=== PATIENT | male | born 1990 | race African-American/Black ===

== ENCOUNTER 2017-09-02 11:30 | Inpatient (IN) | payer OTHER ==
[2017-09-02 13:50] VITALS: BMI 23.2
--- NOTE | 2017-09-02 14:59 | HP ---
CIWA Score - CIWA Score Nausea/Vomitin-Mild Nausea/No Vomiting Muscle Tremors: 4-Moderate,w/Arms Extend Anxiety: 4-Mod. Anxious/Guarded Agitation: 4-Moderately Restless Paroxysmal Sweats: 3 Orientation: 0-Oriented Tacttile Disturbances: 0-None Auditory Disturbances: 0-None Visual Disturbances: 0-None Headache: 1-Very Mild CIWA-Ar Total Score: 17 Admission ROS [facility] - HPI Chief Complaint: I am here for detox and help. Allergies/Adverse Reactions: Allergies Allergy/AdvReac Type Severity Reaction Status Date / Time No Known Allergies Allergy Verified 09/02/17 14:15 History of Present Illness: pt is a 27yr old male with a history of alcohol and cannabis dependence seeking detox for treatment. Exam Limitations: No Limitations - Ebola screening Have you traveled outside of the country in the last 21 days: No Have you had contact with anyone from an Ebola affected area: No Have you been sick,other than usual withdrawal symptoms: No Do you have a fever: No - Review of Systems Constitutional: Chills, Diaphoresis, Loss of Appetite, Night Sweats, Changes in sleep, Unintentional Wgt. Loss EENT: reports: Tearing, Nose Congestion Respiratory: reports: No Symptoms reported Cardiac: reports: Syncope GI: reports: Diarrhea, Nausea, Poor Appetite, Poor Fluid Intake, Vomiting, Indigestion : reports: No Symptoms Reported Musculoskeletal: reports: Back Pain Integumentary: reports: Flushing, Sweating, Other (veriscolor on chest/ neck/ back) Neuro: reports: Headache, Tingling, Tremors Endocrine: reports: Excessive Sweating, Flushing, Intolerance to Cold, Intolerance to Heat Hematology: reports: No Symptoms Reported Psychiatric: reports: Judgement Intact, Mood/Affect Appropiate, Orientated x3, Agitated, Anxious, Depressed Other Systems: Reviewed and Negative Patient History - Patient Medical History Hx Anemia: No Hx Asthma: No Hx Chronic Obstructive Pulmonary Disease (COPD): No Hx Cancer: No Hx Cardiac Disorders: No Hx Congestive Heart Failure: No Hx Hypertension: Yes Hx Hypercholesterolemia: No Hx Pacemaker: No HX Cerebrovascular Accident: No Hx Seizures: Yes (2015) Hx Diabetes: No Hx Gastrointestinal Disorders: No Hx Liver Disease: No Hx Genitourinary Disorders: No Hx Sexually Transmitted Disorders: No Hx Renal Disease (ESRD): No Hx Thyroid Disease: No Hx Human Immunodeficiency Virus (HIV): No (negative) Hx Hepatitis C: No (negative) Hx Depression: No Hx Suicide Attempt: No Hx Bipolar Disorder: No Hx Schizophrenia: No - Patient Surgical History Past Surgical History: Yes Other Surgical History: liver biopsy age 12 - PPD History Documented Results: Negative w/o proof Implanted On Prior R Admission?: No PPD to be Administered?: Yes - Reproductive History Patient is a Female of Child Bearing Age (11 -55 yrs old): No - Smoking Cessation Smoking history: Current every day smoker Have you smoked in the past 12 months: Yes Aproximately how many cigarettes per day: 10 Hx Chewing Tobacco Use: No Initiated information on smoking cessation: Yes 'Breaking Loose' booklet given: 09/02/17 - Substance & Tx. History Hx Alcohol Use: Yes Hx Substance Use: Yes Substance Use Type: Alcohol, Marijuana Hx Substance Use Treatment: Yes ([facility] 2017) - Substances Abused Alcohol Route: Oral Frequency: Daily Amount used: vodka(1 liter-1/2 gallon) Age of first use: 14 Date of Last Use: 09/01/17 Marijuana/Hashish Route: Smoking Frequency: Daily Amount used: $20 Age of first use: 13 Date of Last Use: 09/01/17 K-2 Route: Smoking Frequency: Daily Amount used: $20 Age of first use: 24 Date of Last Use: 09/01/17 Family Disease History - Family Disease History Family History: Denies Family Disease History: Other: Mother (hiv) Admission Physical Exam [facility] - Vital Signs Vital Signs: Vital Signs - 24 hr 09/02/17 13:46 Temperature 97.8 F Pulse Rate 90 Respiratory 18 Rate Blood Pressure 128/93 - Physical General Appearance: Yes: Appropriately Dressed, Moderate Distress, Tremorous, Irritable, Sweating, Anxious HEENTM: Yes: Nasal Congestion, Rhinorrhea Respiratory: Yes: Lungs Clear, Normal Breath Sounds, No Respiratory Distress Neck: Yes: No masses,lesions,Nodules Breast: Yes: Within Normal Limits Cardiology: Yes: Regular Rhythm, Regular Rate, S1, S2 Abdominal: Yes: Normal Bowel Sounds, Non Tender, Soft Genitourinary: Yes: Within Normal Limits Back: Yes: Normal Inspection Musculoskeletal: Yes: full range of Motion, Back pain Extremities: Yes: Normal Capillary Refill, Normal Inspection, Non-Tender, Tremors Neurological: Yes: Fully Oriented, Alert, Normal Response Integumentary: Yes: Normal Color, Diaphoresis, Other (versicolor to chest/nec/ back) Lymphatic: Yes: Within Normal Limits - Diagnostic (1) Alcohol dependence with uncomplicated withdrawal Current Visit: Yes Status: Chronic (2) Nicotine dependence Current Visit: Yes Status: Chronic Qualifiers: Nicotine product type: cigarettes Substance use status: uncomplicated Qualified Code(s): F17.210 - Nicotine dependence, cigarettes, uncomplicated (3) Cannabis dependence Current Visit: Yes Status: Chronic Cleared for Admission [facility] - Detox or Rehab [facility] Level of Care: Medically Managed Detox Regimen/Protocol: Librium [facility] Breath Alcohol Content Breath Alcohol Content: 0.020 Urine Drug Screen - Results Drug Screen Negative: No Urine Drug Screen Results: THC-Marijuana, BZO-Benzodiazepines
[2017-09-02] MEDS ORDERED: hydrOXYzine PAMOATE 50 MG CAPSULE (FP) PO PRN (15:03)
[2017-09-02] MEDS ORDERED: guaiFENesin/D-METHORPHAN HB 10 ML UNIT-DOSE CUPS PO PRN (15:03)
[2017-09-02] MEDS ORDERED: chlordiazePOXIDE HCL 25 MG CAPSULE PO PRN (15:03)
[2017-09-02] MEDS ORDERED: MAGNESIUM HYDROX 2400MG/30ML ORAL SUSPENSION 30 ML CUP PO PRN (15:03)
[2017-09-02] MEDS ORDERED: LOPERAMIDE HCL 2 MG CAPSULE PO PRN (15:03)
[2017-09-02] MEDS ORDERED: P-EPHED 60MG/TRIPROLIDI 2.5MG TABLET PO PRN (15:03)
[2017-09-02] MEDS ORDERED: MAG HYDROX/AL HYDROX/SIMETH 30 ML UNIT-DOSE CUP PO PRN (15:03)
[2017-09-02] MEDS ORDERED: MAGNESIUM CITRATE 300 ML BOTTLE PO PRN (15:03)
[2017-09-02] MEDS ORDERED: NICOTINE POLACRILEX 4 MG GUM BUC PRN (15:03)
[2017-09-02] MEDS ORDERED: ACETAMINOPHEN 325 MG TABLET (FP) PO PRN (15:03)
[2017-09-02] MEDS ORDERED: MENTHOL/PHENOL 1 EACH UD MM PRN (15:03)
[2017-09-02] MEDS ORDERED: chlordiazePOXIDE HCL 25 MG CAPSULE PO ONE (15:33)
[2017-09-02] MEDS: chlordiazePOXIDE HCL 25 MG CAPSULE PO SCH ×2 (17:21→22:08)
[2017-09-02] MEDS ORDERED: FLUOCINONIDE 0.05% CREAM (15 GM TUBE) TP SCH (18:00)
[2017-09-02 18:34] LABS: URINE APPEARANCE CLEAR; URINE BILIRUBIN NEGATIVE (NEGATIVE); URINE BLOOD NEGATIVE (NEGATIVE); URINE COLOR YELLOW; URINE GLUCOSE (UA) NEGATIVE (NEGATIVE); URINE KETONE NEGATIVE (NEGATIVE); URINE LEUK ESTERASE NEGATIVE (NEGATIVE); URINE NITRITE NEGATIVE (NEGATIVE); URINE PROTEIN NEGATIVE (NEGATIVE); URINE UROBILINOGEN NEGATIVE mg/dL (0.2-1.0)
[2017-09-02] MEDS: KETOCONOZOLE 2% TOPICAL CREAM 15 GM TUBE TP SCH (22:07)
[2017-09-02] MEDS: THIAMINE HCL 100 MG TABLET (FP) PO SCH (22:07)
[2017-09-03] MEDS: chlordiazePOXIDE HCL 25 MG CAPSULE PO SCH ×4 (05:04→22:06)
[2017-09-03 09:46] LABS: HEMATOCRIT 38.1 % (35.4-49); HEMOGLOBIN 12.7 GM/dL (11.7-16.9); MCH 33.8 pg (25.7-33.7); MCHC 33.4 g/dl (32.0-35.9); MEAN PLT VOLUME 8.8 fl (7.5-11.1); PLATELET COUNT 158 K/MM3 (134-434); RBC 3.77 M/mm3 (4.00-5.60); RDW 13.4 % (11.9-15.9); WHITE BLOOD COUNT 3.8 K/mm3 (4.0-10.0)
[2017-09-03 09:57] LABS: CHLORIDE 101 mmol/L (98-107); POTASSIUM 3.8 mmol/L (3.5-5.1); SODIUM 137 mmol/L (136-145)
[2017-09-03 10:02] LABS: ALBUMIN 3.6 g/dl (3.4-5.0); ALK PHOS 107 U/L (45-117); ANION GAP 7 (8-16); BILIRUBIN,TOTAL 0.6 mg/dL (0.2-1.0); BLOOD UREA NITROGEN 14 mg/dL (7-18); CALCIUM 9.3 mg/dL (8.5-10.1); CO2 29 mmol/L (21-32); CREATININE 0.9 mg/dL (0.7-1.3); GLUCOSE,RANDOM 87 mg/dL (74-106); SGOT/AST 170 U/L (15-37); SGPT/ALT 165 U/L (12-78); TOT PROT 7.2 g/dl (6.4-8.2)
[2017-09-03] MEDS: PRENATAL VITAMINS W/ FOLIC ACID TABLET (FP) PO SCH (10:13)
[2017-09-03] MEDS: NICOTINE 21 MG/24 HOURS TOPICAL PATCH TD SCH (10:15)
[2017-09-03] MEDS: KETOCONOZOLE 2% TOPICAL CREAM 15 GM TUBE TP SCH ×2 (10:15→22:07)
[2017-09-03] MEDS ORDERED: FLU VACCINE QUAD 60 MCG/0.5 ML (MDV 17-18) IM ONE (12:00)
--- NOTE | 2017-09-03 13:21 | PN ---
[facility] CIWA - CIWA Score Nausea/Vomitin-No Nausea/No Vomiting Muscle Tremors: 3 Anxiety: 4-Mod. Anxious/Guarded Agitation: 3 Paroxysmal Sweats: 3 Orientation: 0-Oriented Tacttile Disturbances: 2-Mild Itch/Numbness/Burn Auditory Disturbances: 0-None Visual Disturbances: 2-Mild Sensitivity Headache: 0-None Present CIWA-Ar Total Score: 17 [facility] Progress Note (SOAP) Subjective: Sweating, Chills, Fatigue, Tremors, Body Aches, Diarrhea. Objective: PT. A & O X 3, OBSERVED AMBULATING ON UNIT. NO ACUTE DISTRESS. 09/03/17 13:17 Vital Signs Temperature 96.6 F L 09/03/17 09:38 Pulse Rate 77 09/03/17 09:38 Respiratory Rate 18 09/03/17 09:38 Blood Pressure 137/87 09/03/17 09:38 O2 Sat by Pulse Oximetry (%) Laboratory Tests 09/02/17 09/03/17 09/03/17 16:09 06:05 06:05 WBC 3.8 L RBC 3.77 L Hgb 12.7 Hct 38.1 MCV 101.0 H MCH 33.8 H MCHC 33.4 RDW 13.4 Plt Count 158 MPV 8.8 Sodium 137 Potassium 3.8 Chloride 101 Carbon Dioxide 29 Anion Gap 7 L BUN 14 Creatinine 0.9 Creat Clearance w eGFR > 60 Random Glucose 87 Calcium 9.3 Total Bilirubin 0.6 AST 170 H ALT 165 H Alkaline Phosphatase 107 Total Protein 7.2 Albumin 3.6 Urine Color Yellow Urine Appearance Clear Urine pH 6.0 Ur Specific [place] 1.020 Urine Protein Negative Urine Glucose (UA) Negative Urine Ketones Negative Urine Blood Negative Urine Nitrite Negative Urine Bilirubin Negative Urine Urobilinogen Negative Ur Leukocyte Esterase Negative RPR Titer 09/03/17 06:05 WBC RBC Hgb Hct MCV MCH MCHC RDW Plt Count MPV Sodium Potassium Chloride Carbon Dioxide Anion Gap BUN Creatinine Creat Clearance w eGFR Random Glucose Calcium Total Bilirubin AST ALT Alkaline Phosphatase Total Protein Albumin Urine Color Urine Appearance Urine pH Ur Specific [place] Urine Protein Urine Glucose (UA) Urine Ketones Urine Blood Urine Nitrite Urine Bilirubin Urine Urobilinogen Ur Leukocyte Esterase RPR Titer Nonreactive LABS NOTED. Assessment: 09/03/17 13:17 WITHDRAWAL SYMPTOMS. Plan: CONTINUE DETOX. REPEAT AST, ALT ON 09/05/2017 FOR ELEVATED ADMISSION LEVELS. PRN FLEXERIL FOR BODY ACHES / MUSCLE PAINS. INCREASE DAILY PO FLUID INTAKE.
[2017-09-03] MEDS: CYCLOBENZAPRINE HCL 10 MG TABLET (FP) PO PRN (17:30)
[2017-09-03] MEDS: THIAMINE HCL 100 MG TABLET (FP) PO SCH (22:06)
[2017-09-03] MEDS: diphenhydrAMINE HCL 25 MG CAPSULE (FP) PO PRN (22:07)
[2017-09-04] MEDS: chlordiazePOXIDE HCL 25 MG CAPSULE PO SCH ×2 (05:54→10:16)
--- NOTE | 2017-09-04 08:41 | EKG ---
Test Reason : Blood Pressure : / mmHG Vent. Rate : 084 BPM Atrial Rate : 084 BPM P-R Int : 142 ms QRS Dur : 084 ms QT Int : 372 ms P-R-T Axes : 057 070 061 degrees QTc Int : 439 ms NORMAL SINUS RHYTHM NORMAL ECG NO PREVIOUS ECGS AVAILABLE Confirmed by PETE BISHOP, MANUEL (2016) on 09/04/2017 8:40:41 AM Referred By: Confirmed By:MANUEL FREEMAN MD
[2017-09-04] MEDS: KETOCONOZOLE 2% TOPICAL CREAM 15 GM TUBE TP SCH ×2 (10:16→22:09)
[2017-09-04] MEDS: PRENATAL VITAMINS W/ FOLIC ACID TABLET (FP) PO SCH (10:16)
[2017-09-04] MEDS: NICOTINE 21 MG/24 HOURS TOPICAL PATCH TD SCH (10:17)
[2017-09-04] MEDS: IBUPROFEN 400 MG TABLET (FP) PO PRN (10:18)
[2017-09-04] MEDS ORDERED: BISACODYL 5 MG TABLET.DR (FP) PO ONE (11:41)
--- NOTE | 2017-09-04 12:24 | PN ---
[facility] CIWA - CIWA Score Nausea/Vomitin-Int. Nausea w/Dry Heave Muscle Tremors: 4-Moderate,w/Arms Extend Anxiety: 4-Mod. Anxious/Guarded Agitation: 4-Moderately Restless Paroxysmal Sweats: 3 Orientation: 0-Oriented Tacttile Disturbances: 1-Very Mild Itch/Numbness Auditory Disturbances: 0-None Visual Disturbances: 0-None Headache: 1-Very Mild CIWA-Ar Total Score: 21 S Progress Note (SOAP) Subjective: Nausea, sweating, chills, tremor, interrupted sleep, legs cramp, constipation x 2 days (wants dulcolax) Objective: 09/04/17 12:22 Last Vital Signs Temp Pulse Resp BP Pulse Ox 97.3 F L 85 18 116/80 09/04/17 10:26 09/04/17 10:26 09/04/17 10:26 09/04/17 10:26 Laboratory Tests 09/02/17 09/03/17 09/03/17 16:09 06:05 06:05 WBC 3.8 L RBC 3.77 L Hgb 12.7 Hct 38.1 MCV 101.0 H MCH 33.8 H MCHC 33.4 RDW 13.4 Plt Count 158 MPV 8.8 Sodium 137 Potassium 3.8 Chloride 101 Carbon Dioxide 29 Anion Gap 7 L BUN 14 Creatinine 0.9 Creat Clearance w eGFR > 60 Random Glucose 87 Calcium 9.3 Total Bilirubin 0.6 AST 170 H ALT 165 H Alkaline Phosphatase 107 Total Protein 7.2 Albumin 3.6 Urine Color Yellow Urine Appearance Clear Urine pH 6.0 Ur Specific [place] 1.020 Urine Protein Negative Urine Glucose (UA) Negative Urine Ketones Negative Urine Blood Negative Urine Nitrite Negative Urine Bilirubin Negative Urine Urobilinogen Negative Ur Leukocyte Esterase Negative RPR Titer 09/03/17 06:05 WBC RBC Hgb Hct MCV MCH MCHC RDW Plt Count MPV Sodium Potassium Chloride Carbon Dioxide Anion Gap BUN Creatinine Creat Clearance w eGFR Random Glucose Calcium Total Bilirubin AST ALT Alkaline Phosphatase Total Protein Albumin Urine Color Urine Appearance Urine pH Ur Specific [place] Urine Protein Urine Glucose (UA) Urine Ketones Urine Blood Urine Nitrite Urine Bilirubin Urine Urobilinogen Ur Leukocyte Esterase RPR Titer Nonreactive Labs noted Assessment: 09/04/17 12:23 Withdrawal symptoms Plan: Continue detox Encouraged to drink lots of water Dulcolax 10mg PO x 1 dose for constipation (patient doesn't want citroma)
[2017-09-04] MEDS: chlordiazePOXIDE 5 MG CAPSULE PO SCH ×2 (17:49→22:09)
[2017-09-04] MEDS: CYCLOBENZAPRINE HCL 10 MG TABLET (FP) PO PRN (17:49)
[2017-09-04] MEDS: THIAMINE HCL 100 MG TABLET (FP) PO SCH (22:08)
[2017-09-04] MEDS: diphenhydrAMINE HCL 25 MG CAPSULE (FP) PO PRN (22:09)
[2017-09-05] MEDS: chlordiazePOXIDE 5 MG CAPSULE PO SCH ×2 (05:59→10:07)
[2017-09-05] MEDS: PRENATAL VITAMINS W/ FOLIC ACID TABLET (FP) PO SCH (10:07)
[2017-09-05] MEDS: NICOTINE 21 MG/24 HOURS TOPICAL PATCH TD SCH (10:07)
[2017-09-05] MEDS: KETOCONOZOLE 2% TOPICAL CREAM 15 GM TUBE TP SCH ×2 (10:07→22:11)
[2017-09-05 11:01] LABS: SGOT/AST 66 U/L (15-37); SGPT/ALT 111 U/L (12-78)
--- NOTE | 2017-09-05 11:37 | PN ---
[facility] Progress Note (SOAP) Subjective: Tremors, Sweating, Body Aches. Objective: PT. A & O X 3, OBSERVED AMBULATING ON UNIT. NO ACUTE DISTRESS. 09/05/17 11:35 Vital Signs Temperature 97.1 F L 09/05/17 09:17 Pulse Rate 88 09/05/17 09:17 Respiratory Rate 18 09/05/17 09:17 Blood Pressure 127/76 09/05/17 09:17 O2 Sat by Pulse Oximetry (%) Laboratory Tests 09/02/17 09/03/17 09/03/17 16:09 06:05 06:05 WBC 3.8 L RBC 3.77 L Hgb 12.7 Hct 38.1 MCV 101.0 H MCH 33.8 H MCHC 33.4 RDW 13.4 Plt Count 158 MPV 8.8 Sodium 137 Potassium 3.8 Chloride 101 Carbon Dioxide 29 Anion Gap 7 L BUN 14 Creatinine 0.9 Creat Clearance w eGFR > 60 Random Glucose 87 Calcium 9.3 Total Bilirubin 0.6 AST 170 H ALT 165 H Alkaline Phosphatase 107 Total Protein 7.2 Albumin 3.6 Urine Color Yellow Urine Appearance Clear Urine pH 6.0 Ur Specific [place] 1.020 Urine Protein Negative Urine Glucose (UA) Negative Urine Ketones Negative Urine Blood Negative Urine Nitrite Negative Urine Bilirubin Negative Urine Urobilinogen Negative Ur Leukocyte Esterase Negative RPR Titer 09/03/17 09/05/17 06:05 07:00 WBC RBC Hgb Hct MCV MCH MCHC RDW Plt Count MPV Sodium Potassium Chloride Carbon Dioxide Anion Gap BUN Creatinine Creat Clearance w eGFR Random Glucose Calcium Total Bilirubin AST 66 H D ALT 111 H D Alkaline Phosphatase Total Protein Albumin Urine Color Urine Appearance Urine pH Ur Specific [place] Urine Protein Urine Glucose (UA) Urine Ketones Urine Blood Urine Nitrite Urine Bilirubin Urine Urobilinogen Ur Leukocyte Esterase RPR Titer Nonreactive LABS NOTED. RESULTS OF REPEAT AST AND ALT NOTED. 09/05/17 11:36 Assessment: 09/05/17 11:35 WITHDRAWAL SYMPTOMS. Plan: CONTINUE DETOX.
[2017-09-05] MEDS: chlordiazePOXIDE HCL 10 MG CAPSULE PO SCH ×2 (17:48→22:10)
[2017-09-05] MEDS: IBUPROFEN 400 MG TABLET (FP) PO PRN (17:49)
[2017-09-05] MEDS: CYCLOBENZAPRINE HCL 10 MG TABLET (FP) PO PRN (22:10)
[2017-09-05] MEDS: THIAMINE HCL 100 MG TABLET (FP) PO SCH (22:10)
[2017-09-05] MEDS: diphenhydrAMINE HCL 25 MG CAPSULE (FP) PO PRN (22:10)
[2017-09-06] MEDS: chlordiazePOXIDE HCL 10 MG CAPSULE PO SCH (05:08)
[2017-09-06 09:09] VITALS: BP 114/67; PULSE 88; TEMP 98.5
--- NOTE | 2017-09-06 11:35 | DS ---
[facility] Detox Discharge Summary Admission Date: 09/02/17 Discharge Date: 09/06/17 - History Present History: Alcohol Dependence, Cannabis Dependence - Physical Exam Results Vital Signs: Vital Signs Temperature 98.5 F 09/06/17 09:08 Pulse Rate 88 09/06/17 09:08 Respiratory Rate 18 09/06/17 09:08 Blood Pressure 114/67 09/06/17 09:08 O2 Sat by Pulse Oximetry (%) Pertinent Admission Physical Exam Findings: withdrawal sx Vital Signs Temperature 98.5 F 09/06/17 09:08 Pulse Rate 88 09/06/17 09:08 Respiratory Rate 18 09/06/17 09:08 Blood Pressure 114/67 09/06/17 09:08 O2 Sat by Pulse Oximetry (%) Laboratory Last Values WBC 3.8 K/mm3 (4.0-10.0) L 09/03/17 06:05 RBC 3.77 M/mm3 (4.00-5.60) L 09/03/17 06:05 Hgb 12.7 GM/dL (11.7-16.9) 09/03/17 06:05 Hct 38.1 % (35.4-49) 09/03/17 06:05 MCV 101.0 fl (80-96) H 09/03/17 06:05 MCH 33.8 pg (25.7-33.7) H 09/03/17 06:05 MCHC 33.4 g/dl (32.0-35.9) 09/03/17 06:05 RDW 13.4 % (11.9-15.9) 09/03/17 06:05 Plt Count 158 K/MM3 (134-434) 09/03/17 06:05 MPV 8.8 fl (7.5-11.1) 09/03/17 06:05 Sodium 137 mmol/L (136-145) 09/03/17 06:05 Potassium 3.8 mmol/L (3.5-5.1) 09/03/17 06:05 Chloride 101 mmol/L (98-107) 09/03/17 06:05 Carbon Dioxide 29 mmol/L (21-32) 09/03/17 06:05 Anion Gap 7 (8-16) L 09/03/17 06:05 BUN 14 mg/dL (7-18) 09/03/17 06:05 Creatinine 0.9 mg/dL (0.7-1.3) 09/03/17 06:05 Creat Clearance w eGFR > 60 (>60) 09/03/17 06:05 Random Glucose 87 mg/dL (74-106) 09/03/17 06:05 Calcium 9.3 mg/dL (8.5-10.1) 09/03/17 06:05 Total Bilirubin 0.6 mg/dL (0.2-1.0) 09/03/17 06:05 AST 66 U/L (15-37) H D 09/05/17 07:00 ALT 111 U/L (12-78) H D 09/05/17 07:00 Alkaline Phosphatase 107 U/L (45-117) 09/03/17 06:05 Total Protein 7.2 g/dl (6.4-8.2) 09/03/17 06:05 Albumin 3.6 g/dl (3.4-5.0) 09/03/17 06:05 Urine Color Yellow 09/02/17 16:09 Urine Appearance Clear 09/02/17 16:09 Urine pH 6.0 (5.0-8.0) 09/02/17 16:09 Ur Specific [place] 1.020 (1.001-1.035) 09/02/17 16:09 Urine Protein Negative (NEGATIVE) 09/02/17 16:09 Urine Glucose (UA) Negative (NEGATIVE) 09/02/17 16:09 Urine Ketones Negative (NEGATIVE) 09/02/17 16:09 Urine Blood Negative (NEGATIVE) 09/02/17 16:09 Urine Nitrite Negative (NEGATIVE) 09/02/17 16:09 Urine Bilirubin Negative (NEGATIVE) 09/02/17 16:09 Urine Urobilinogen Negative mg/dL (0.2-1.0) 09/02/17 16:09 Ur Leukocyte Esterase Negative (NEGATIVE) 09/02/17 16:09 RPR Titer Nonreactive (NONREACTIVE) 09/03/17 06:05 lab noted - Treatment Hospital Course: Detox Protocol Followed, Detoxed Safely, Responded well, Discharged Condition Good, Rehab Referral Accepted Patient has Accepted a Rehab Referral to: [facility] - Medication Discharge Medications: Ambulatory Orders NK [No Known Home Medication] 09/02/17 - Diagnosis (1) Alcohol dependence with uncomplicated withdrawal Status: Acute (2) Nicotine dependence Status: Acute Qualifiers: Nicotine product type: cigarettes Substance use status: in withdrawal Qualified Code(s): F17.213 - Nicotine dependence, cigarettes, with withdrawal - AMA Did Patient Leave Against Medical Advice: No
== END 2017-09-06 09:45 | disposition home or self-care (01) | DRG 775 ==
LOC: YASAS 11:30 → Y3N 15:21
PROVIDERS: ADMIT Internal Medicine; ATTEND Internal Medicine
PROC: HZ2ZZZZ Detoxification Services for Substance Abuse Treatment (ICD-10-PCS; principal; 2017-09-02)
DX: F10.230 Alcohol dependence with withdrawal, uncomplicated (principal); F12.20 Cannabis dependence, uncomplicated; F17.213 Nicotine dependence, cigarettes, with withdrawal; I10 Essential (primary) hypertension; Z86.69 Personal history of other diseases of the nervous system and sense organs
CPT/HCPCS: 36415; 80053; 81003; 84450; 84460; 85027; 86593; 90688; 93005; 93010; G0008

== ENCOUNTER 2019-03-13 16:00 | Inpatient (IN) | payer OTHER ==
[2019-03-13 22:23] VITALS: BMI 24.1
--- NOTE | 2019-03-13 23:42 | HP ---
"CIWA Score Nausea/Vomitin-Mild Nausea/No Vomiting Muscle Tremors: 4-Moderate,w/Arms Extend Anxiety: 1-Mildly Anxious Agitation: 4-Moderately Restless Paroxysmal Sweats: 3 (Increased facial moisture) Orientation: 0-Oriented Tacttile Disturbances: 0-None Auditory Disturbances: 0-None Visual Disturbances: 0-None Headache: 0-None Present CIWA-Ar Total Score: 13 - Admission Criteria [facility] Guidelines: Admission for Medically Managed Detox: Requires at least one of the followin. CIWA greater than 12 2. Seizures within the past 24 hours 3. Delirium tremens within the past 24 hours 4. Hallucinations within the past 24 hours 5. Acute intervention needed for co occurring medical disorder 6. Acute intervention needed for co occurring psychiatric disorder 7. Severe withdrawal that cannot be handled at a lower level of care (continued vomiting, continued diarrhea, abnormal vital signs) requiring intravenous medication and/or fluids 8. Patient presents the following: CIWA greater than 12 Admission Criteria Met: Admission criteria met Admission ROS [facility] Chief Complaint: Alcohol withdrawing Allergies/Adverse Reactions: Allergies Allergy/AdvReac Type Severity Reaction Status Date / Time Fish Containing Products Allergy Mild Rash, Verified 03/13/19 21:55 swelling acetaminophen [From Tylenol] Allergy Verified 03/13/19 21:55 History of Present Illness: Pt. presents w/ alcohol withdrawal and co-occurring marijuana, K2, cannabis and cocaine use seeking detox treatment. Alcohol use began at age [age]. Currently drinks 1 liter - 1/2 gallon Vodka daily. Cocaine use began at age 26. Started crack use @ 28. Marijuana use began at age 13. K2 use began at age [age]. Nicotine use began at age [age]. 4-5 cig/day. Blackouts- last years ago. Denies overdoses. PMHx: HTN (states takes CloNidine for B/P) when has w/drawls, Seizures (takes gabapentin) Last seizure 2017; Hepatitis B - on Emtriva. MHHx: Anxiety, Insomnia, Denies depression: Denies thoughts of harming self or others, Search Terms: Jennifer Caba, 1990 Search Date: 03/13/2019 11:41:27 PM The Drug Utilization Report below displays all of the controlled substance prescriptions, if any, that your patient has filled in the last twelve months. The information displayed on this report is compiled from pharmacy submissions to the Department, and accurately reflects the information as submitted by the pharmacies. This report was requested by: Lillie Robledo | Reference #: [id number] There are no results for the search terms that you entered. Exam Limitations: No Limitations - Ebola screening Have you traveled outside of the country in the last 21 days: No Have you had contact with anyone from an Ebola affected area: No Have you been sick,other than usual withdrawal symptoms: No (Denies recent exposure to measles) Do you have a fever: No - Review of Systems Constitutional: Chills, Diaphoresis, Changes in sleep (Difficulty falling asleep - takes OTC benadry and vistaril) EENT: reports: Blurred Vision Respiratory: reports: No Symptoms reported Cardiac: reports: No Symptoms Reported GI: reports: Nausea, Other (Hepatitis B) : reports: No Symptoms Reported Musculoskeletal: reports: No Symptoms Reported Integumentary: reports: No Symptoms Reported Neuro: reports: Seizure, Tremors Endocrine: reports: No Symptoms Reported Hematology: reports: No Symptoms Reported Psychiatric: reports: Orientated x3, Agitated, Anxious Patient History - Patient Medical History Hx Anemia: No Hx Asthma: No Hx Chronic Obstructive Pulmonary Disease (COPD): No Hx Cancer: No Hx Cardiac Disorders: No Hx Congestive Heart Failure: No Hx Hypertension: Yes Hx Hypercholesterolemia: No Hx Pacemaker: No HX Cerebrovascular Accident: No Hx Seizures: Yes (2016) Hx Diabetes: No Hx Gastrointestinal Disorders: No Hx Liver Disease: No Hx Genitourinary Disorders: No Hx Sexually Transmitted Disorders: No Hx Renal Disease (ESRD): No Hx Thyroid Disease: No Hx Human Immunodeficiency Virus (HIV): No (negative) Hx Hepatitis C: No (negative) Hx Depression: No Hx Suicide Attempt: No Hx Bipolar Disorder: No Hx Schizophrenia: No - Patient Surgical History Past Surgical History: Yes Other Surgical History: liver biopsy age 12 - PPD History Previous Implant?: Yes Documented Results: Negative w/proof Implanted On Prior [facility] Admission?: Yes Date: 09/04/17 PPD to be Administered?: Yes - Smoking Cessation Smoking history: Current every day smoker Have you smoked in the past 12 months: Yes Aproximately how many cigarettes per day: 5 Hx Chewing Tobacco Use: No Initiated information on smoking cessation: Yes 'Breaking Loose' booklet given: 03/13/19 - Substance & Tx. History Hx Alcohol Use: Yes Hx Substance Use: Yes Substance Use Type: Alcohol, Cocaine Hx Substance Use Treatment: Yes (detox, rehab, out-patient program) - Substances abused Alcohol Substance route: Oral Frequency: Daily Amount used: Vodka, Age of first use: 15 Date of last use: 03/13/19 Cocaine Substance route: Smoking Frequency: 1-2 times per week Amount used: $20.00 Age of first use: 26 Date of last use: 03/13/19 K2/Spice Substance route: Smoking Frequency: Daily Amount used: 4 -5 sticks Age of first use: 25 Date of last use: 03/13/19 Family Disease History - Family Disease History Family Disease History: Other: Mother (hiv) Admission Physical Exam S - Vital Signs Vital Signs: Vital Signs - 24 hr 03/13/19 22:12 Temperature 98.2 F Pulse Rate 80 Respiratory 18 Rate Blood Pressure 88/59 L - Physical General Appearance: Yes: Nourished, Tremorous, Irritable, Sweating (Increased facial moisture), Anxious HEENTM: Yes: EOMI (Jerking movement of eyes upon lateral gaze), Hearing grossly Normal, Normocephalic, Normal Voice, DANIEL, Pharynx Normal Respiratory: Yes: Lungs Clear, Normal Breath Sounds, No Respiratory Distress Neck: Yes: No masses,lesions,Nodules, Supple Breast: Yes: Breast Exam Deferred Cardiology: Yes: Regular Rhythm, S1, S2 Abdominal: Yes: Non Tender, Flat, Soft, Increased Bowel Sounds Genitourinary: Yes: Within Normal Limits Back: Yes: Normal Inspection Musculoskeletal: Yes: full range of Motion, Gait Steady Extremities: Yes: Normal Capillary Refill, Normal Range of Motion, Non-Tender, Tremors (Moderate tremors) 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 NML intact (Jerking movement of eyes upon lateral gaze), Fully Oriented, Alert, Motor Strength 5/5, Normal Response Integumentary: Yes: Normal Color, Warm, Moist (Increased facial moisture), Other (Dry skin w/ decreased turgor) Lymphatic: Yes: Within Normal Limits - Diagnostic (1) History of seizures Current Visit: Yes Status: Chronic (2) Cocaine dependence, uncomplicated Current Visit: Yes Status: Chronic (3) Nystagmus Current Visit: Yes Status: Acute (4) Alcohol dependence with uncomplicated withdrawal Current Visit: Yes Status: Acute (5) Nicotine dependence Current Visit: Yes Status: Chronic Qualifiers: Nicotine product type: cigarettes Substance use status: in withdrawal Qualified Code(s): F17.213 - Nicotine dependence, cigarettes, with withdrawal (6) Cannabis dependence Current Visit: Yes Status: Chronic (7) History of hepatitis B Current Visit: Yes Status: Chronic Comment: On Emtriva Cleared for Admission S - Detox or Rehab [facility] Level of Care: Medically Managed Detox Regimen/Protocol: Librium Claeared for Rehab Admission: No Breathalyzer - Breathalyzer Breathalyzer: 0.063 Urine Drug Screen - Test Device Lot number: [id number] Expiration date: 11/23/20 - Control Is test valid?: Yes - Results Drug screen NEGATIVE: No Urine drug screen results: THC-Marijuana, VENESSA-Cocaine, BZO-Benzodiazepines Inpatient Rehab Admission - Rehab Decision to Admit Inpatient rehab admission?: No"
[2019-03-13] MEDS ORDERED: MAGNESIUM CITRATE 300 ML BOTTLE PO PRN (23:59)
[2019-03-13] MEDS ORDERED: MAG HYDROX/AL HYDROX/SIMETH 30 ML UNIT-DOSE CUP PO PRN (23:59)
[2019-03-13] MEDS ORDERED: METHOCARBAMOL 500 MG TABLET PO PRN (23:59)
[2019-03-13] MEDS ORDERED: guaiFENesin 200 MG/10 ML 10 ML UNIT-DOSE CUPS PO PRN (23:59)
[2019-03-13] MEDS ORDERED: MAGNESIUM HYDROX 2400MG/30ML ORAL SUSPENSION 30 ML CUP PO PRN (23:59)
[2019-03-13] MEDS ORDERED: IBUPROFEN 400 MG TABLET (FP) PO PRN (23:59)
[2019-03-13] MEDS ORDERED: ACETAMINOPHEN 325 MG TABLET (FP) PO PRN ×2 (23:59)
[2019-03-13] MEDS ORDERED: MENTHOL/PHENOL 1 EACH UD MM PRN (23:59)
[2019-03-13] MEDS ORDERED: BISMUTH SUBSALICYLATE 524 MG/30 ML UD PO PRN (23:59)
[2019-03-13] MEDS ORDERED: NICOTINE POLACRILEX 2 MG GUM BUC PRN (23:59)
[2019-03-14] MEDS ORDERED: chlordiazePOXIDE HCL 25 MG CAPSULE PO PRN (00:36)
[2019-03-14] MEDS ORDERED: chlordiazePOXIDE HCL 25 MG CAPSULE PO ONE (00:45)
[2019-03-14] MEDS ORDERED: TUBERCULIN PPD 5 TU/0.1ML VIAL ID ONE (00:47)
[2019-03-14] MEDS: GABAPENTIN 300 MG CAPSULE (FP) PO SCH ×3 (05:58→22:05)
[2019-03-14] MEDS: chlordiazePOXIDE HCL 25 MG CAPSULE PO SCH ×4 (05:58→22:05)
[2019-03-14] MEDS: PRENATAL VITAMINS W/ FOLIC ACID TABLET (FP) PO SCH (10:42)
[2019-03-14] MEDS: EMTRICITABINE PO SCH (10:42)
[2019-03-14] MEDS: cloNIDine HCL 0.1 MG TABLET PO SCH ×2 (10:44→22:05)
[2019-03-14 11:19] LABS: HEMATOCRIT 38.8 % (35.4-49); MCH 33.6 pg (25.7-33.7); MCHC 33.6 g/dl (32.0-35.9); MEAN CELL VOLUME 99.9 fl (80-96); MEAN PLT VOLUME 8.2 fl (7.5-11.1); PLATELET COUNT 211 K/MM3 (134-434); RBC 3.88 M/mm3 (4.00-5.60); RDW 14.5 % (11.9-15.9); WHITE BLOOD COUNT 2.7 K/mm3 (4.0-10.0)
[2019-03-14 12:27] LABS: ALBUMIN 3.6 g/dl (3.4-5.0); BILIRUBIN,TOTAL 0.5 mg/dL (0.2-1); BLOOD UREA NITROGEN 8.7 mg/dL (7-18); CALCIUM 9.2 mg/dL (8.5-10.1); CREATININE 0.9 mg/dL (0.55-1.3); POTASSIUM 4.2 mmol/L (3.5-5.1)
--- NOTE | 2019-03-14 14:39 | PN ---
[facility] CIWA - CIWA Score Nausea/Vomitin-Mild Nausea/No Vomiting Muscle Tremors: 2 Anxiety: 1-Mildly Anxious Agitation: 1-Slight > Activity Paroxysmal Sweats: 1-Minimal Palms Moist Orientation: 0-Oriented Tacttile Disturbances: 0-None Auditory Disturbances: 0-None Visual Disturbances: 0-None Headache: 0-None Present CIWA-Ar Total Score: 6 [facility] Progress Note (SOAP) Subjective: pt here for multiple substance use, on alcohol detox protocol O: Vital Signs - 24 hr 03/13/19 03/14/19 03/14/19 22:12 00:51 03:30 Temperature 98.2 F 97.0 F L Pulse Rate 80 85 Respiratory 18 18 18 Rate Blood Pressure 88/59 L 132/95 03/14/19 03/14/19 03/14/19 06:26 06:30 09:16 Temperature 98.1 F 98.3 F Pulse Rate 77 74 Respiratory 18 18 18 Rate Blood Pressure 113/68 116/72 03/14/19 13:33 Temperature 97.0 F L Pulse Rate 61 Respiratory 18 Rate Blood Pressure 118/75 Laboratory Tests 03/14/19 03/14/19 03/14/19 07:30 07:30 07:30 WBC 2.7 L RBC 3.88 L Hgb 13.0 Hct 38.8 MCV 99.9 H MCH 33.6 MCHC 33.6 RDW 14.5 Plt Count 211 D MPV 8.2 Sodium 140 Potassium 4.2 Chloride 105 Carbon Dioxide 30 Anion Gap 6 L BUN 8.7 Creatinine 0.9 Est GFR (CKD-EPI)AfAm 133.30 Est GFR (CKD-EPI)NonAf 115.01 Random Glucose 80 Calcium 9.2 Total Bilirubin 0.5 AST 33 ALT 43 Alkaline Phosphatase 104 Total Protein 7.0 Albumin 3.6 RPR Titer Nonreactive a/p conitnue alcohol detox protocol, continue emtriva for HBV treatment
--- NOTE | 2019-03-14 15:43 | EKG ---
Test Reason : Blood Pressure : / mmHG Vent. Rate : 066 BPM Atrial Rate : 066 BPM P-R Int : 122 ms QRS Dur : 084 ms QT Int : 404 ms P-R-T Axes : 063 074 075 degrees QTc Int : 423 ms NORMAL SINUS RHYTHM WITH SINUS ARRHYTHMIA NORMAL ECG WHEN COMPARED WITH ECG OF 02-SEP-2017 18:27, NO SIGNIFICANT CHANGE WAS FOUND Confirmed by MARY BETH BISHOP, KATERYNA ([id number]) on 03/14/2019 3:42:59 PM Referred By: RUBEN RAMÍREZ Confirmed By:KATERYNA CLINTON MD
[2019-03-14] MEDS: THIAMINE HCL 100 MG TABLET (FP) PO SCH (22:05)
[2019-03-14] MEDS: hydrOXYzine PAMOATE 50 MG CAPSULE (FP) PO PRN (22:08)
[2019-03-14] MEDS: MELATONIN 5 MG TABLETS PO PRN (23:29)
[2019-03-15] MEDS: GABAPENTIN 300 MG CAPSULE (FP) PO SCH ×3 (05:30→22:10)
[2019-03-15] MEDS: chlordiazePOXIDE HCL 25 MG CAPSULE PO SCH ×4 (05:30→22:10)
[2019-03-15] MEDS: EMTRICITABINE PO SCH (11:24)
[2019-03-15] MEDS: PRENATAL VITAMINS W/ FOLIC ACID TABLET (FP) PO SCH (11:24)
[2019-03-15] MEDS: cloNIDine HCL 0.1 MG TABLET PO SCH ×2 (11:25→22:10)
--- NOTE | 2019-03-15 14:00 | PN ---
S CIWA - CIWA Score Nausea/Vomitin-No Nausea/No Vomiting Muscle Tremors: None Anxiety: 4-Mod. Anxious/Guarded Agitation: 2 Paroxysmal Sweats: 1-Minimal Palms Moist Orientation: 0-Oriented Tacttile Disturbances: 0-None Auditory Disturbances: 0-None Visual Disturbances: 0-None Headache: 0-None Present CIWA-Ar Total Score: 7 BHS Progress Note (SOAP) Subjective: Anxious, Restless, Sweating. Objective: PATIENT A & O X 3, OBSERVED AMBULATING ON UNIT UNASSISTED. IN NO ACUTE DISTRESS. 03/15/19 13:58 Vital Signs Temperature 97.7 F 03/15/19 10:26 Pulse Rate 63 03/15/19 10:26 Respiratory Rate 18 03/15/19 10:26 Blood Pressure 131/85 03/15/19 10:26 O2 Sat by Pulse Oximetry (%) Laboratory Tests 03/14/19 03/14/19 03/14/19 07:30 07:30 07:30 WBC 2.7 L RBC 3.88 L Hgb 13.0 Hct 38.8 MCV 99.9 H MCH 33.6 MCHC 33.6 RDW 14.5 Plt Count 211 D MPV 8.2 Sodium 140 Potassium 4.2 Chloride 105 Carbon Dioxide 30 Anion Gap 6 L BUN 8.7 Creatinine 0.9 Est GFR (CKD-EPI)AfAm 133.30 Est GFR (CKD-EPI)NonAf 115.01 Random Glucose 80 Calcium 9.2 Total Bilirubin 0.5 AST 33 ALT 43 Alkaline Phosphatase 104 Total Protein 7.0 Albumin 3.6 RPR Titer Nonreactive LABS NOTED. Assessment: 03/15/19 13:59 WITHDRAWAL SYMPTOMS. LEUKOPENIA. Plan: CONTINUE DETOX.
[2019-03-15] MEDS: THIAMINE HCL 100 MG TABLET (FP) PO SCH (22:11)
[2019-03-15] MEDS: hydrOXYzine PAMOATE 50 MG CAPSULE (FP) PO PRN (22:11)
[2019-03-15] MEDS: MELATONIN 5 MG TABLETS PO PRN (22:42)
[2019-03-16] MEDS: GABAPENTIN 300 MG CAPSULE (FP) PO SCH ×2 (05:26→14:27)
[2019-03-16] MEDS: chlordiazePOXIDE HCL 10 MG CAPSULE PO SCH ×3 (05:26→17:37)
[2019-03-16] MEDS: cloNIDine HCL 0.1 MG TABLET PO SCH (10:13)
[2019-03-16] MEDS: EMTRICITABINE PO SCH (10:13)
[2019-03-16] MEDS: PRENATAL VITAMINS W/ FOLIC ACID TABLET (FP) PO SCH (10:13)
[2019-03-16] MEDS: chlordiazePOXIDE HCL 10 MG CAPSULE PO PRN ×2 (12:24→19:55)
--- NOTE | 2019-03-16 13:09 | PN ---
S CIWA - CIWA Score Nausea/Vomitin-No Nausea/No Vomiting Muscle Tremors: None Anxiety: 4-Mod. Anxious/Guarded Agitation: 2 Paroxysmal Sweats: 1-Minimal Palms Moist Orientation: 0-Oriented Tacttile Disturbances: 0-None Auditory Disturbances: 0-None Visual Disturbances: 0-None Headache: 0-None Present CIWA-Ar Total Score: 7 BHS Progress Note (SOAP) Subjective: Anxious, Restless, Sweating. Objective: PATIENT A & O X 3, OBSERVED AMBULATING ON UNIT UNASSISTED. IN NO ACUTE DISTRESS. 03/16/19 13:12 Vital Signs Temperature 97.5 F L 03/16/19 09:33 Pulse Rate 53 L 03/16/19 09:33 Respiratory Rate 18 03/16/19 09:33 Blood Pressure 121/78 03/16/19 09:33 O2 Sat by Pulse Oximetry (%) Laboratory Tests 03/14/19 03/14/19 03/14/19 07:30 07:30 07:30 WBC 2.7 L RBC 3.88 L Hgb 13.0 Hct 38.8 MCV 99.9 H MCH 33.6 MCHC 33.6 RDW 14.5 Plt Count 211 D MPV 8.2 Sodium 140 Potassium 4.2 Chloride 105 Carbon Dioxide 30 Anion Gap 6 L BUN 8.7 Creatinine 0.9 Est GFR (CKD-EPI)AfAm 133.30 Est GFR (CKD-EPI)NonAf 115.01 Random Glucose 80 Calcium 9.2 Total Bilirubin 0.5 AST 33 ALT 43 Alkaline Phosphatase 104 Total Protein 7.0 Albumin 3.6 RPR Titer Nonreactive LABS NOTED. Assessment: 03/16/19 13:13 WITHDRAWAL SYMPTOMS. LEUKOPENIA. 03/16/19 13:14 Plan: CONTINUE DETOX.
--- NOTE | 2019-03-16 15:57 | PN ---
[facility] Progress Note Note: PATIENT REPORTS THAT HE IS TOLERATING CURRENT WITHDRAWAL / DETOX SYMPTOMS WELL. AT PATIENT'S REQUEST, CURRENT DETOX MEDICATION REGIMEN (LIBRIUM) MODIFIED SO THAT PATIENT MAY BE DISCHARGED TOMORROW, 03/17/2019. Deya REBOLLEDO NP
--- NOTE | 2019-03-16 20:12 | DS ---
[facility] Detox Discharge Summary Admission Date: 03/14/19 Discharge Date: 03/16/19 - History Additional Comments: As per the nurse, Ms. Arteaga patient was disruptive on the floor. He was reported to have thrown a cup of juice at the nursing station keyboard and had requested to leave. The Government Clerk and Security were notified. Pertinent Past History: alcohol dependence, cocaine dependence, Leukopenia, Nystagmus, history of Hep B and seizures - Physical Exam Results Vital Signs: Vital Signs Temperature 98.8 F 03/16/19 17:56 Pulse Rate 79 03/16/19 17:56 Respiratory Rate 18 03/16/19 17:56 Blood Pressure 116/70 03/16/19 17:56 O2 Sat by Pulse Oximetry (%) Laboratory Last Values WBC 2.7 K/mm3 (4.0-10.0) L 03/14/19 07:30 RBC 3.88 M/mm3 (4.00-5.60) L 03/14/19 07:30 Hgb 13.0 GM/dL (11.7-16.9) 03/14/19 07:30 Hct 38.8 % (35.4-49) 03/14/19 07:30 MCV 99.9 fl (80-96) H 03/14/19 07:30 MCH 33.6 pg (25.7-33.7) 03/14/19 07:30 MCHC 33.6 g/dl (32.0-35.9) 03/14/19 07:30 RDW 14.5 % (11.9-15.9) 03/14/19 07:30 Plt Count 211 K/MM3 (134-434) D 03/14/19 07:30 MPV 8.2 fl (7.5-11.1) 03/14/19 07:30 Sodium 140 mmol/L (136-145) 03/14/19 07:30 Potassium 4.2 mmol/L (3.5-5.1) 03/14/19 07:30 Chloride 105 mmol/L (98-107) 03/14/19 07:30 Carbon Dioxide 30 mmol/L (21-32) 03/14/19 07:30 Anion Gap 6 MMOL/L (8-16) L 03/14/19 07:30 BUN 8.7 mg/dL (7-18) 03/14/19 07:30 Creatinine 0.9 mg/dL (0.55-1.3) 03/14/19 07:30 Est GFR (CKD-EPI)AfAm 133.30 03/14/19 07:30 Est GFR (CKD-EPI)NonAf 115.01 03/14/19 07:30 Random Glucose 80 mg/dL (74-106) 03/14/19 07:30 Calcium 9.2 mg/dL (8.5-10.1) 03/14/19 07:30 Total Bilirubin 0.5 mg/dL (0.2-1) 03/14/19 07:30 AST 33 U/L (15-37) 03/14/19 07:30 ALT 43 U/L (13-61) 03/14/19 07:30 Alkaline Phosphatase 104 U/L (45-117) 03/14/19 07:30 Total Protein 7.0 g/dl (6.4-8.2) 03/14/19 07:30 Albumin 3.6 g/dl (3.4-5.0) 03/14/19 07:30 RPR Titer Nonreactive (NONREACTIVE) 03/14/19 07:30 Pertinent Admission Physical Exam Findings: Alcohol withdrawal symptoms - Medication Discharge Medications: Ambulatory Orders Clonidine HCl [Catapres] 0.1 mg PO BID 03/13/19 Emtricitabine [Emtriva -] 200 mg PO DAILY 03/13/19 Gabapentin [Neurontin] 300 mg PO TID 03/13/19 Hydroxyzine HCl 50 mg PO DAILY PRN 03/13/19 - Diagnosis (1) Alcohol dependence with uncomplicated withdrawal Current Visit: Yes Status: Chronic (2) Leukopenia Current Visit: Yes Status: Chronic (3) Nystagmus Current Visit: Yes Status: Chronic (4) Cannabis dependence Current Visit: Yes Status: Chronic (5) Cocaine dependence, uncomplicated Current Visit: Yes Status: Chronic (6) History of hepatitis B Current Visit: Yes Status: Chronic (7) History of seizures Current Visit: Yes Status: Chronic (8) Nicotine dependence Current Visit: Yes Status: Chronic Qualifiers: Nicotine product type: cigarettes Substance use status: uncomplicated Qualified Code(s): F17.210 - Nicotine dependence, cigarettes, uncomplicated - AMA Did Patient Leave Against Medical Advice: Yes
[2019-03-16 23:43] VITALS: BP 117/68; PULSE 80; TEMP 97.1
[2019-03-17] MEDS ORDERED: chlordiazePOXIDE HCL 10 MG CAPSULE PO SCH (05:00)
== END 2019-03-16 20:10 | disposition left against medical advice (07) | DRG 770 ==
LOC: YASAS 16:00 → Y3N 03-14 00:14
PROVIDERS: ADMIT Surgery; ATTEND Surgery
PROC: HZ2ZZZZ Detoxification Services for Substance Abuse Treatment (ICD-10-PCS; principal; 2019-03-14)
DX: F10.230 Alcohol dependence with withdrawal, uncomplicated (principal); F14.20 Cocaine dependence, uncomplicated; F12.20 Cannabis dependence, uncomplicated; F17.210 Nicotine dependence, cigarettes, uncomplicated; F19.10 Other psychoactive substance abuse, uncomplicated; I10 Essential (primary) hypertension; B19.10 Unspecified viral hepatitis B without hepatic coma; H55.00 Unspecified nystagmus; G40.909 Epilepsy, unspecified, not intractable, without status epilepticus; Z59.0 Homelessness
CPT/HCPCS: 36415; 80053; 85027; 86593; 93005; 93010; J0735